=== PATIENT | female | born 1990 ===

== ENCOUNTER 2020-12-10 06:32 | Inpatient (IN) | payer OTHER ==
--- NOTE | 2020-12-10 11:12 | History and Physical Report ---
History of Present Illness Date of examination: 12/10/20 Date of admission: 12/10/2020 Chief complaint: I started having contractions and vaginal bleeding this morning History of present illness: Late entry to care at 22 2/7 weeks at [facility]. course complicated by Anemia (PO FESO4), and non-compliance with visits. 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 History: abnormal PAP smear Social history: no significant social history, - Obstetrical History Expected Date of Delivery: 12/08/20 Actual Gestation: 40 Week(s) 2 Day(s) : 4 Para: 3 Number of Living Children: 3 #1 Infant Gender: Female year: 2,010 Birthweight: 3.175 kg Method of Delivery: Vaginal Gestational age at delivery: 40 #2 Infant Gender: Female year: 2,018 Birthweight: 2.722 kg Method of Delivery: Vaginal Gestational age at delivery: 40 #3 Infant Gender: Male year: 2,020 Birthweight: 3.345 kg Method of Delivery: Vaginal Gestational age at delivery: 40 Medications and Allergies Allergies Allergy/AdvReac Type Severity Reaction Status Date / Time No Known Allergies Allergy Unverified 12/10/20 07:36 Home Medications Medication Instructions Recorded Confirmed Last Taken Type No Known Home Medications [No 12/10/20 12/10/20 Unknown History Reported Home Medications] Review of Systems All systems: negative - Vital Signs Vital signs: Vital Signs Pulse BP 67 111/62 12/10/20 06:55 12/10/20 06:55 Temp Pulse Resp BP Pulse Ox 98.5 F 66 18 95/62 98 12/10/20 07:10 12/10/20 11:05 12/10/20 07:10 12/10/20 09:52 12/10/20 11:05 - Physical Exam Breasts: Positive: normal Cardiovascular: Regular rate Lungs: Positive: Clear to auscultation, Normal air movement Abdomen: Positive: normal appearance, soft, normal bowel sounds Genitourinary (Female): Positive: normal external genitalia, normal perenium Vagina: Positive: normal moisture Uterus: Positive: enlarged, normal contour Anus/Rectum: Positive: normal perianal skin Extremities: Positive: normal - Obstetrical FHR: category 1 Uterine Contraction Monitor Mode: External Cervical Dilatation: 3 Cervical Effacement Percentage: 70 station: -3 Uterine Contraction Pattern: Irregular Uterine Tone Measurement Phase: Resting Uterine Contraction Intensity: Mild Results All other labs normal. Assessment and Plan A: IUP @ 40 2/7 Weeks Category I Tracing Early Labor GBS Positive P: Admit to L&D Per Routine Orders Pitocin Augmentation GBS Prophylaxis
[2020-12-10] MEDS ORDERED: LACTATED RINGERS 1,000 ML IV SCH (11:15)
[2020-12-10] MEDS ORDERED: TERBUTALINE 1 MG/1 ML INJ SUB-Q PRN (11:30)
[2020-12-10] MEDS ORDERED: LIDOCAINE (2%) 20 MG/1 ML VIAL 20 ML MDV INFILTRATI SCH (11:30)
[2020-12-10] MEDS ORDERED: ePHEDrine SULFATE 50 MG/1 ML INJ IV PRN (11:30)
[2020-12-10] MEDS ORDERED: AMPICILLIN/NS 2 GM/100 ML 2 GM/100 ML BAG IV SCH (11:30)
[2020-12-10] MEDS ORDERED: NALOXONE 0.4 MG/1 ML INJ IV PRN (11:30)
[2020-12-10] MEDS ORDERED: BUTORPHANOL 2 MG/1 ML INJ IV PRN (11:30)
[2020-12-10] MEDS ORDERED: MINERAL OIL 30 ML ORAL LIQD PO PRN (12:00)
[2020-12-10] MEDS ORDERED: OXYTOCIN DRIP 30 UNITS/500 ML BAG IV SCH ×2 (12:00)
--- NOTE | 2020-12-10 12:09 | Progress Note ---
Assessment and Plan continue induction. Subjective Date of service: 12/10/20 Principal diagnosis: induction for indications Objective - Constitutional Vitals: Vital Signs - 12hr 12/10/20 12/10/20 12/10/20 06:55 07:09 07:10 Temperature 98.5 F Pulse Rate 67 62 Respiratory 18 Rate Blood Pressure 111/62 O2 Sat by Pulse 99 Oximetry 12/10/20 12/10/20 12/10/20 07:14 07:19 07:24 Temperature Pulse Rate 76 68 68 Respiratory Rate Blood Pressure O2 Sat by Pulse 99 99 99 Oximetry 12/10/20 12/10/20 12/10/20 07:29 07:34 07:39 Temperature Pulse Rate 64 79 60 Respiratory Rate Blood Pressure O2 Sat by Pulse 98 98 98 Oximetry 12/10/20 12/10/20 12/10/20 07:44 07:49 07:54 Temperature Pulse Rate 93 H 72 83 Respiratory Rate Blood Pressure O2 Sat by Pulse 98 99 99 Oximetry 12/10/20 12/10/20 12/10/20 07:59 08:04 08:09 Temperature Pulse Rate 89 78 66 Respiratory Rate Blood Pressure O2 Sat by Pulse 98 98 99 Oximetry 12/10/20 12/10/20 12/10/20 08:14 08:19 08:24 Temperature Pulse Rate 79 68 65 Respiratory Rate Blood Pressure O2 Sat by Pulse 99 97 100 Oximetry 12/10/20 12/10/20 12/10/20 08:29 09:50 09:52 Temperature Pulse Rate 71 73 80 Respiratory Rate Blood Pressure 95/62 O2 Sat by Pulse 99 100 Oximetry 12/10/20 12/10/20 12/10/20 09:55 10:00 10:05 Temperature Pulse Rate 74 76 68 Respiratory Rate Blood Pressure O2 Sat by Pulse 99 99 100 Oximetry 12/10/20 12/10/20 12/10/20 10:10 10:15 10:20 Temperature Pulse Rate 80 79 71 Respiratory Rate Blood Pressure O2 Sat by Pulse 100 100 99 Oximetry 12/10/20 12/10/20 12/10/20 10:25 10:30 10:35 Temperature Pulse Rate 78 82 78 Respiratory Rate Blood Pressure O2 Sat by Pulse 100 99 98 Oximetry 12/10/20 12/10/20 12/10/20 10:40 10:45 10:50 Temperature Pulse Rate 84 79 72 Respiratory Rate Blood Pressure O2 Sat by Pulse 96 99 100 Oximetry 12/10/20 12/10/20 12/10/20 10:55 11:00 11:05 Temperature 98.1 F Pulse Rate 59 L 63 66 Respiratory 18 Rate Blood Pressure O2 Sat by Pulse 99 99 98 Oximetry 12/10/20 12/10/20 12/10/20 11:10 11:42 11:43 Temperature Pulse Rate 69 64 68 Respiratory Rate Blood Pressure 107/65 O2 Sat by Pulse 100 98 Oximetry 12/10/20 12/10/20 12/10/20 11:48 11:53 11:56 Temperature Pulse Rate 69 61 83 Respiratory Rate Blood Pressure O2 Sat by Pulse 97 96 88 Oximetry 12/10/20 12/10/20 11:58 12:03 Temperature Pulse Rate 68 72 Respiratory Rate Blood Pressure O2 Sat by Pulse 97 96 Oximetry General appearance: Present: no acute distress, well-nourished - EENT Eyes: PERRL, EOM intact ENT: hearing intact, clear oral mucosa Ears: bilateral: normal - Neck Neck: supple, normal ROM - Respiratory Respiratory effort: normal Respiratory: bilateral: CTA - Breasts Breasts: normal - Cardiovascular Rhythm: regular Heart Sounds: Present: S1 & S2. Absent: gallop, rub Extremities: pulses intact, No edema, normal color, Full ROM - Gastrointestinal General gastrointestinal: Present: soft, non-tender, non-distended, normal bowel sounds - Genitourinary Female genitourinary: normal - Integumentary Integumentary: clear, warm, dry - Musculoskeletal Musculoskeletal: 1, strength equal bilaterally - Neurologic Neurologic: moves all extremities Medications & Allergies - Medications Allergies/Adverse Reactions: Allergies No Known Allergies Allergy (Unverified 12/10/20 07:36) Home Medications: Home Medications Medication Instructions Recorded Confirmed Last Taken Type No Known Home Medications [No 12/10/20 12/10/20 Unknown History Reported Home Medications] Active Medications: Generic Name Dose Route Start Last Admin Trade Name Freq PRN Reason Stop Dose Admin Butorphanol Tartrate 2 mg 12/10/20 11:30 Butorphanol 2 Mg/1 Ml Inj IV Q2H PRN Pain , Severe (7-10) Ephedrine Sulfate 10 mg 12/10/20 11:30 Ephedrine Sulfate 50 Mg/1 Ml Inj IV Q2M PRN Hypotension Oxytocin/Sodium Chloride 30 units in 500 mls @ 4 mls/hr 12/10/20 12:00 Pitocin/Ns 30 Unit/500ml IV TITR [facility] Protocol Lactated Ringer's 1,000 mls @ 125 mls/hr 12/10/20 11:15 Lactated Ringers IV DIRECT RONY Oxytocin/Sodium Chloride 30 units in 500 mls @ 40 mls/hr 12/10/20 12:00 Pitocin/Ns 30 Unit/500ml IV TITR [facility] Protocol Ampicillin Sodium 2 gm in 100 mls @ 100 mls/hr 12/10/20 11:30 Ampicillin/Ns 2 Gm/100 Ml IV 12/10/20 16:00 ONCE [facility] Protocol Ampicillin Sodium 1 gm in 50 mls @ 100 mls/hr 12/10/20 16:00 Ampicillin/Ns 1 Gm/50 Ml IV Q4H [facility] Protocol Lidocaine 20 ml 12/10/20 11:30 Lidocaine (2%) 20 Mg/1 Ml Vial 20 Ml Mdv INFILTRATI 12/11/20 11:29 ONCE [facility] Mineral Oil 30 ml 12/10/20 12:00 Mineral Oil 30 Ml Oral Liqd PO QHS PRN Constipation Naloxone HCl 0.1 mg 12/10/20 11:30 Naloxone 0.4 Mg/1 Ml Inj IV Q2MIN PRN Res Rate </= 8 or 02 SAT < 92% Terbutaline Sulfate 0.25 mg 12/10/20 11:30 Terbutaline 1 Mg/1 Ml Inj SUB-Q ONCE PRN Hyperstimulation/Hypertonicity
[2020-12-10 12:56] LABS: Hematocrit 32.5 % (30.3-42.9); Hemoglobin 11.2 gm/dl (10.1-14.3); Mean Corpuscular HGB Conc 34 % (30-34); Mean Corpuscular Volume 92 fl (79-97); Platelet Count 170 K/mm3 (140-440); Red Blood Count 3.53 M/mm3 (3.65-5.03); Red Cell Distribution Width 15.9 % (13.2-15.2)
--- NOTE | 2020-12-10 15:30 | Procedure Note ---
OB Delivery Note - Delivery Date of Delivery: 12/10/20 (1440) Surgeon: VINNY CAMILO Estimated blood loss: 100cc - Vaginal Delivery presentation: vertex Delivery position: OA Intrapartum events: none Delivery induction: none Delivery augmentation: rupture of membranes (SROM of a large amount of clear fluid @1430), pitocin Delivery monitor: external FHT, external uterine Route of delivery: Delivery placenta: spontaneous Delivery cord: nuchal cord Episiotomy: none Delivery laceration: 1st degree Delivery repair: vicryl Anesthesia: local Delivery comments: of a live 6'4 female over a 1st degree vaginal laceration without pain control with Apgars of 8 and 9 at 1440 on 12/10/2020. Tight nuchal cord x 1 manually reduced on the perineum prior to delivery of the anterior shoulder. Infant directly to maternal abd/chest, skin to skin contact. Spontaneous delivery of placenta complete and intact with Arias side presenting at 1444. Fundus is firm and midline located 4 below the U. Lochia is scant. Bladder emptied with in and out catheter; estimated 200ccs voided. Delayed cord clamping and cutting; Cord cut by the Father of the Baby. Vaginal laceration repaired with 2-0 Vicryl on a SH under local 2% Lidocaine. GBS prophylaxis x 1. Placenta to be discarded. - A at 1 minute: 8 at 5 minutes: 9 Infant Gender: Female (6'4)
[2020-12-10] MEDS ORDERED: AMPICILLIN/NS 1 GM/50 ML 1 GM/50 ML BAG IV SCH (16:00)
[2020-12-10] MEDS ORDERED: PROMETHAZINE 25 MG TAB PO PRN (16:00)
[2020-12-10] MEDS ORDERED: PROMETHAZINE 25 MG RECT SUPP PR PRN (16:00)
[2020-12-10] MEDS ORDERED: WITCH HAZEL/ GLYCERIN PAD TP PRN (16:00)
[2020-12-10] MEDS ORDERED: diphenhydrAMINE 25 MG CAP PO PRN (16:00)
[2020-12-10] MEDS ORDERED: LANOLIN/ZINC/DIMETHICONE (LANSINOH) 7 GM TP PRN (16:00)
[2020-12-10] MEDS ORDERED: ONDANSETRON 4 MG/2 ML INJ IV PRN (16:00)
[2020-12-10] MEDS: HYDROcodone/ACETAMINOPHEN 5-325 MG TAB PO PRN (21:55)
[2020-12-11] MEDS: IBUPROFEN 600 MG TAB PO SCH ×3 (06:35→18:00)
[2020-12-11 06:36] LABS: Hematocrit 34.4 % (30.3-42.9); Hemoglobin 11.4 gm/dl (10.1-14.3)
[2020-12-11] MEDS: PRENATAL VIT27-FE FUMARATE-FOLIC ACID VIT TAB PO SCH (10:49)
[2020-12-11] MEDS: HYDROcodone/ACETAMINOPHEN 5-325 MG TAB PO PRN (20:29)
--- NOTE | 2020-12-11 20:48 | Progress Note ---
Subjective - Subjective Date of service: 12/11/20 Principal diagnosis: s/p Patient reports: appetite normal, voiding normally, pain well controlled, ambulating normally [place]: doing well, bottle feeding Objective - Vital Signs Latest vital signs: Vital Signs Temp Pulse Resp BP BP Pulse Ox 12/11/20 16:34 98.2 F 60 18 98/54 98 12/11/20 08:04 98.1 F 62 18 105/69 98 12/11/20 04:00 98.6 F 81 16 116/81 12/11/20 00:00 98.7 F 80 16 120/79 12/10/20 21:42 98.2 F 60 18 102/54 95 Intake and Output 12/11/20 12/11/20 12/11/20 06:59 14:59 22:59 Intake Total 240 960 Balance 240 960 Intake: Oral 240 240 Intake, Free Water 720 Other: Total, Intake Amount 240 240 # Voids Void 1 1 2 - Exam Breasts: Present: normal Abdomen: Present: normal appearance, soft, normal bowel sounds Vulva: both: normal Uterus: Present: normal, firm, fundal height below umbilicus Extremities: Present: normal Incision: Present: normal, intact, other (1st degree lac)
--- NOTE | 2020-12-11 22:55 | Discharge Summary ---
Providers - Providers Date of Admission: 12/10/20 11:37 Date of discharge: 12/11/20 Attending physician: RAJI NEWTON JR, MD Primary care physician: RAJI NEWTON JR, MD Hospitalization Reason for admission: active labor Delivery: Episiotomy: none Laceration: 1st degree Incision: normal, intact Other procedures: none complications: none Discharge diagnosis: IUP at term delivered [place] baby: female Hospital course: Pt arrived in active labor and had a w/o pp complications. See H&P, delivery summary, and pp notes. Condition at discharge: Stable Disposition: DC-01 TO HOME OR SELFCARE Plan - Discharge Medications Prescriptions: Ibuprofen [Motrin 600 MG tab] 600 mg PO Q6H #30 tablet - Provider Discharge Summary Activity: routine, no sex for 6 weeks, no heavy lifting 4 weeks, no strenuous exercise Diet: routine Instructions: routine Additional instructions: [] Smoking cessation referral if applicable(refer to patient education folder for contact #) [] Refer to [facility] Book[facility] Call your doctor immediately for: * Fever > 100.5 * Heavy vaginal bleeding ( >1 pad per hour) * Severe persistent headache * Shortness of breath * Reddened, hot, painful area to leg or breast * Drainage or odor from incision. * Keep incision clean and dry at all times and follow doctor's instructions regarding bathing/showering - Follow up plan Follow up: RAJI NEWTON JR, MD [Primary Care Provider] - 6 Weeks
[2020-12-12] MEDS: HYDROcodone/ACETAMINOPHEN 5-325 MG TAB PO PRN (07:55)
[2020-12-12] MEDS: PRENATAL VIT27-FE FUMARATE-FOLIC ACID VIT TAB PO SCH (10:51)
[2020-12-12] MEDS: IBUPROFEN 600 MG TAB PO SCH ×2 (12:40→13:36)
[2020-12-12 13:41] VITALS: BP 102/70
== END 2020-12-12 15:30 | disposition home or self-care (01) | DRG 807 ==
LOC: TRG 06:32 → APU 06:41 → LD 11:26 → TRG 11:35 → LD 11:37 → OB 16:18
PROVIDERS: ADMIT Obstetrics & Gynecology; ATTEND Obstetrics & Gynecology
PROC: 10E0XZZ Delivery of Products of Conception, External Approach (ICD-10-PCS; principal; 2020-12-10)
PROC: 10907ZC Drainage of Amniotic Fluid, Therapeutic from Products of Conception, Via Natural or Artificial Opening (ICD-10-PCS; 2020-12-10)
PROC: 0HQ9XZZ Repair Perineum Skin, External Approach (ICD-10-PCS; 2020-12-10)
DX: O99.824 Streptococcus B carrier state complicating childbirth (principal); Z37.0 Single live birth; Z3A.40 40 weeks gestation of pregnancy; O99.02 Anemia complicating childbirth; O70.0 First degree perineal laceration during delivery; Z91.19 Patient's noncompliance with other medical treatment and regimen; Z20.822 Contact with and (suspected) exposure to COVID-19
CPT/HCPCS: 36415; 59025; 85014; 85018; 85027; 86850; 86900; 86901; G0378; J0290; J0595; J2590; J7120; U0003

== ENCOUNTER 2021-07-13 12:04 | Emergency (ER) | payer MEDICAID ==
[2021-07-13 12:12] VITALS: BP 108/60
[2021-07-13] MEDS ORDERED: ACETAMINOPHEN 325 MG TAB PO ONE (12:30)
[2021-07-13 12:41] LABS: Basophils % (Auto) 0.9 % (0.0-1.8); Eosinophils % (Auto) 0.5 % (0.0-4.3); Hematocrit 38.2 % (30.3-42.9); Hemoglobin 12.7 gm/dl (10.1-14.3); Lymphocytes # (Auto) 1.5 K/mm3 (1.2-5.4); Lymphocytes % (Auto) 28.3 % (13.4-35.0); Mean Corpuscular HGB Conc 33 % (30-34); Mean Corpuscular Volume 90 fl (79-97); Monocytes # (Auto) 0.4 K/mm3 (0.0-0.8); Platelet Count 242 K/mm3 (140-440); Red Blood Count 4.24 M/mm3 (3.65-5.03); Red Cell Distribution Width 14.6 % (13.2-15.2)
[2021-07-13 13:06] LABS: Alanine Aminotransferase 12 units/L (7-56); Albumin 4.6 g/dL (3.9-5); Blood Urea Nitrogen 8 mg/dL (7-17); Calcium 9.1 mg/dL (8.4-10.2); Hemolysis Index 9
[2021-07-13 13:07] LABS: BUN/Creatinine Ratio 20
--- NOTE | 2021-07-13 13:25 | Emergency Department Report ---
ED HPI - General Chief complaint: Vaginal Bleeding Stated complaint: VAGINAL BLEEDING Time Seen by Provider: 07/13/21 12:15 Source: patient Mode of arrival: Ambulatory Limitations: No Limitations - History of Present Illness Initial comments: Patient is a 31-year-old female presents emergency room complaints of vaginal spotting that began yesterday. She states that whenever she urinates and goes to wipe she notices a small amount of blood on the tissue. She denies any heavy bleeding or passing clots. She states that she has been having lower abdominal cramping. She states her last menstrual cycle was 05/17/2021. She states that she took rieh-cvs-[id number] test which was positive. She has not seen ENGINEER CHIEF. She denies any fever, nausea, vomiting, diarrhea, dysuria, abnormal vaginal discharge. No past medical history. No allergies to medications. /P:4/A: 0 - Related Data Previous Rx's Medication Instructions Recorded Last Taken Type Ibuprofen [Motrin 600 MG tab] 600 mg PO Q6H #30 tablet 12/11/20 Unknown Rx Vit-Fe Fumar-FA [ 1 each PO QDAY tablet 12/11/20 Unknown Rx Vitamin] Allergies Allergy/AdvReac Type Severity Reaction Status Date / Time No Known Allergies Allergy Verified 07/13/21 12:12 ED Review of Systems ROS: Stated complaint: VAGINAL BLEEDING Other details as noted in HPI Comment: All other systems reviewed and negative ED Past Medical Hx - Past Medical History Hx Hypertension: No Hx Congestive Heart Failure: No Hx Diabetes: No Hx Deep Vein Thrombosis: No Hx Renal Disease: No Hx Sickle Cell Disease: No Hx Seizures: No Hx Asthma: No Hx COPD: No Hx HIV: No - Social History Smoking Status: Never Smoker - Medications Home Medications: Home Medications Medication Instructions Recorded Confirmed Last Taken Type Ibuprofen [Motrin 600 MG tab] 600 mg PO Q6H #30 tablet 12/11/20 Unknown Rx Vit-Fe Fumar-FA [ 1 each PO QDAY tablet 12/11/20 Unknown Rx Vitamin] ED Physical Exam - General Limitations: No Limitations General appearance: alert, in no apparent distress - Head Head exam: Present: atraumatic, normocephalic - Eye Eye exam: Present: normal appearance - ENT ENT exam: Present: mucous membranes moist - Respiratory Respiratory exam: Present: normal lung sounds bilaterally. Absent: respiratory distress, wheezes, rales, rhonchi, stridor, chest wall tenderness, accessory muscle use, decreased breath sounds, prolonged expiratory - Cardiovascular Cardiovascular Exam: Present: regular rate, normal rhythm, normal heart sounds. Absent: systolic murmur, diastolic murmur, rubs, gallop - GI/Abdominal GI/Abdominal exam: Present: soft, normal bowel sounds. Absent: distended, t enderness, guarding, rebound, rigid - Neurological Exam Neurological exam: Present: alert, oriented X3 - Psychiatric Psychiatric exam: Present: normal affect, normal mood - Skin Skin exam: Present: warm, dry, intact ED Course Vital Signs 07/13/21 12:11 Temperature 98.2 F Pulse Rate 63 Respiratory 18 Rate Blood Pressure 108/60 O2 Sat by Pulse 98 Oximetry ED Medical Decision Making - Lab Data Result diagrams: 07/13/21 12:23 07/13/21 12:23 Lab Results 07/13/21 07/13/21 07/13/21 Range/Units 12:23 12:23 12:23 WBC 5.4 (4.5-11.0) K/mm3 RBC 4.24 (3.65-5.03) M/mm3 Hgb 12.7 (10.1-14.3) gm/dl Hct 38.2 (30.3-42.9) % MCV 90 (79-97) fl MCH 30 (28-32) pg MCHC 33 (30-34) % RDW 14.6 (13.2-15.2) % Plt Count 242 (140-440) K/mm3 Lymph % (Auto) 28.3 (13.4-35.0) % Cottle % (Auto) 8.0 H (0.0-7.3) % Eos % (Auto) 0.5 (0.0-4.3) % Baso % (Auto) 0.9 (0.0-1.8) % Lymph # (Auto) 1.5 (1.2-5.4) K/mm3 Cottle # (Auto) 0.4 (0.0-0.8) K/mm3 Eos # (Auto) 0.0 (0.0-0.4) K/mm3 Baso # (Auto) 0.0 (0.0-0.1) K/mm3 Seg Neutrophils % 62.3 (40.0-70.0) % Seg Neutrophils # 3.4 (1.8-7.7) K/mm3 Sodium 138 (137-145) mmol/L Potassium 3.9 (3.6-5.0) mmol/L Chloride 103.1 (98-107) mmol/L Carbon Dioxide 21 L (22-30) mmol/L Anion Gap 18 mmol/L BUN 8 (7-17) mg/dL Creatinine 0.4 L (0.6-1.2) mg/dL Estimated GFR > 60 ml/min BUN/Creatinine Ratio 20 % Glucose 103 H (65-100) mg/dL Calcium 9.1 (8.4-10.2) mg/dL Total Bilirubin 0.20 (0.1-1.2) mg/dL AST 15 (5-40) units/L ALT 12 (7-56) units/L Alkaline Phosphatase 68 (35-129) units/L Total Protein 7.4 (6.3-8.2) g/dL Albumin 4.6 (3.9-5) g/dL Albumin/Globulin Ratio 1.6 % HCG, Quant 3966 H (0-4) mIU/mL Urine Color (Yellow) Urine Turbidity (Clear) Urine pH (5.0-7.0) Ur Specific [place] (1.003-1.030) Urine Protein (Negative) mg/dL Urine Glucose (UA) (Negative) mg/dL Urine Ketones (Negative) mg/dL Urine Blood (Negative) Urine Nitrite (Negative) Urine Bilirubin (Negative) Urine Urobilinogen (<2.0) mg/dL Ur Leukocyte Esterase (Negative) Urine WBC (Auto) (0.0-6.0) /HPF Urine RBC (Auto) (0.0-6.0) /HPF Blood Type 07/13/21 07/13/21 Range/Units 12:23 13:47 WBC (4.5-11.0) K/mm3 RBC (3.65-5.03) M/mm3 Hgb (10.1-14.3) gm/dl Hct (30.3-42.9) % MCV (79-97) fl MCH (28-32) pg MCHC (30-34) % RDW (13.2-15.2) % Plt Count (140-440) K/mm3 Lymph % (Auto) (13.4-35.0) % Cottle % (Auto) (0.0-7.3) % Eos % (Auto) (0.0-4.3) % Baso % (Auto) (0.0-1.8) % Lymph # (Auto) (1.2-5.4) K/mm3 Cott[place] # (Auto) (0.0-0.8) K/mm3 Eos # (Auto) (0.0-0.4) K/mm3 Baso # (Auto) (0.0-0.1) K/mm3 Seg Neutrophils % (40.0-70.0) % Seg Neutrophils # (1.8-7.7) K/mm3 Sodium (137-145) mmol/L Potassium (3.6-5.0) mmol/L Chloride (98-107) mmol/L Carbon Dioxide (22-30) mmol/L Anion Gap mmol/L BUN (7-17) mg/dL Creatinine (0.6-1.2) mg/dL Estimated GFR ml/min BUN/Creatinine Ratio % Glucose (65-100) mg/dL Calcium (8.4-10.2) mg/dL Total Bilirubin (0.1-1.2) mg/dL AST (5-40) units/L ALT (7-56) units/L Alkaline Phosphatase (35-129) units/L Total Protein (6.3-8.2) g/dL Albumin (3.9-5) g/dL Albumin/Globulin Ratio % HCG, Quant (0-4) mIU/mL Urine Color Red (Yellow) Urine Turbidity Cloudy (Clear) Urine pH 7.0 (5.0-7.0) Ur Specific [place] 1.002 L (1.003-1.030) Urine Protein 100 mg/dl (Negative) mg/dL Urine Glucose (UA) Neg (Negative) mg/dL Urine Ketones Neg (Negative) mg/dL Urine Blood Lg (Negative) Urine Nitrite Neg (Negative) Urine Bilirubin Neg (Negative) Urine Urobilinogen < 2.0 (<2.0) mg/dL Ur Leukocyte Esterase Sm (Negative) Urine WBC (Auto) < 1.0 (0.0-6.0) /HPF Urine RBC (Auto) < 1.0 (0.0-6.0) /HPF Blood Type A POSITIVE - Radiology Data Radiology results: report reviewed Ordering Physician: MARIANO CORTEZ Date of Service: 07/13/21 Procedure(s): US OB transvaginal Accession Number(s): [id number] cc: MARIANO CORTEZ FIRSTTRIMESTER OBSTETRIC ULTRASOUND ULTRASOUND OB TRANSVAGINAL HISTORY: Vaginal spotting during COMPARISON: None. TECHNIQUE: Routine transabdominal and transvaginal OB ultrasound performed. FINDINGS: Uterus: Mildly enlarged measuring 10.4 x 6.3 x 7.6 cm. Gestational Sac: Well-defined oval shape and intrauterine in location. Yolk Sac: Normal in appearance. Fetus/Embryo: Green-rump length of 0.53 cm, corresponding to an estimated gestational age of 6 weeks 2 days. Embryonic/ anatomy is too small for evaluation. Embryonic/ cardiac activity: Not clearly detected Placenta: Too small for evaluation. Amniotic fluid volume: Subjectively appropriate for gestational age. Ovaries: The right ovary is normal in size and appearance with normal blood flow, measuring 2.7 x 1.9 x 2.1 cm. The left ovary is normal in size and appearance with normal blood flow, measuring 2.5 x 1.8 x 3.2 cm. Additional findings: None. IMPRESSION A small gestational sac containing a pole and yolk sac is identified. Green-rump length correlates with a 6 week 2 day . No convincing heart activity could be demonstrated at this time. This could represent a very early normal . Blighted ovum is not excluded. Close interval follow-up is recommended. Signer Name: Jonatan Davenport Jr, MD Signed: 07/13/2021 2:40 PM Workstation Name: [id number] Transcribed By: TTR Dictated By: JONATAN DAVENPORT JR, MD Electronically Authenticated By: JONATAN DAVENPORT JR, MD Signed Date/Time: 07/13/21 1440 DD/ 1437 TD/TT: - Medical Decision Making Patient is a 31-year-old female presents emergency room complaints of vaginal spotting that began yesterday. She states that whenever she urinates and goes to wipe she notices a small amount of blood on the tissue. She denies any heavy bleeding or passing clots. She states that she has been having lower abdominal cramping. She states her last menstrual cycle was 05/17/2021. She states that she took [id number]-jyp-efoaamc test which was positive. She has not seen ENGINEER CHIEF. She denies any fever, nausea, vomiting, diarrhea, dysuria, abnormal vaginal discharge. No past medical history. No allergies to medications. /P:4/A: 0. Vitals are normal. No abdominal tenderness on exam. hCG quant is 3966. Patient is Rh+. UA without evidence of UTI. OB ultrasound: A small gestational sac containing a pole and yolk sac is identified. Green-rump length correlates with a 6 week 2 day . No convincing heart activity could be demonstrated at this time. This could represent a very early normal . Blighted ovum is not excluded. Close interval follow-up is recommended. Discussed all findings with patient. Discussed threatened miscarriage. Discussed the importance of having repeat hCG quant and close OB/ COLLECTIONS CURATOR follow-up. Advised patient May take Tylenol as needed for any cramping. Increase your water intake. Please practice pelvic rest. Follow-up with ENGINEER CHIEF. You need to have a repeat hCG quant in 2-3 days, if you are unable to follow-up with ENGINEER CHIEF may report to the emergency room. Return to emergency room for any new or worsening symptoms. Critical care attestation.: If time is entered above; I have spent that time in minutes in the direct care of this critically ill patient, excluding procedure time. ED Disposition Clinical Impression: Threatened miscarriage Disposition: 01 HOME / SELF CARE / HOMELESS Is pt being admited?: No Does the pt Need Aspirin: No Condition: Stable Instructions: Threatened Miscarriage Additional Instructions: May take Tylenol as needed for any cramping. Increase your water intake. Please practice pelvic rest. Follow-up with ENGINEER CHIEF. You need to have a repeat hCG quant in 2-3 days, if you are unable to follow-up with ENGINEER CHIEF may report to the emergency room. Return to emergency room for any new or worsening symptoms. Referrals: OMAR BEEBE MD [Staff Physician] - 2-3 Days Time of Disposition: 14:47 Print Language: SOUTH SUDANESE
[2021-07-13 14:03] LABS: Bilirubin,Urine NEG (Negative); Blood,Urine LG (Negative); Color,Urine Red (Yellow); Urobilinogen,Urine < 2.0 mg/dL (<2.0); WBC,Urine < 1.0 /HPF (0.0-6.0)
[2021-07-13 14:13] LABS: RBC,Urine < 1.0 /HPF (0.0-6.0)
--- NOTE | 2021-07-13 14:45 | Ultrasound Report ---
FIRSTTRIMESTER OBSTETRIC ULTRASOUND ULTRASOUND OB TRANSVAGINAL HISTORY: Vaginal spotting during COMPARISON: None. TECHNIQUE: Routine transabdominal and transvaginal OB ultrasound performed. FINDINGS: Uterus: Mildly enlarged measuring 10.4 x 6.3 x 7.6 cm. Gestational Sac: Well-defined oval shape and intrauterine in location. Yolk Sac: Normal in appearance. Fetus/Embryo: [place]-rump length of 0.53 cm, corresponding to an estimated gestational age of 6 weeks 2 days. Embryonic/ anatomy is too small for evaluation. Embryonic/ cardiac activity: Not clearly detected Placenta: Too small for evaluation. Amniotic fluid volume: Subjectively appropriate for gestational age. Ovaries: The right ovary is normal in size and appearance with normal blood flow, measuring 2.7 x 1. 9 x 2.1 cm. The left ovary is normal in size and appearance with normal blood flow, measuring 2.5 x 1.8 x 3.2 cm. Additional findings: None. IMPRESSION A small gestational sac containing a pole and yolk sac is identified. [place]-rump length correla shayy with a 6 week 2 day . No convincing heart activity could be demonstrated at this t lolita. This could represent a very early normal . Blighted ovum is not excluded. Close interva l follow-up is recommended. Signer Name: Jonatan Davenport Jr, MD Signed: 07/13/2021 2:40 PM Workstation Name: [id number]
--- NOTE | 2021-07-13 14:45 | Ultrasound Report ---
FIRSTTRIMESTER OBSTETRIC ULTRASOUND ULTRASOUND OB TRANSVAGINAL HISTORY: Vaginal spotting during COMPARISON: None. TECHNIQUE: Routine transabdominal and transvaginal OB ultrasound performed. FINDINGS: Uterus: Mildly enlarged measuring 10.4 x 6.3 x 7.6 cm. Gestational Sac: Well-defined oval shape and intrauterine in location. Yolk Sac: Normal in appearance. Fetus/Embryo: [place]-rump length of 0.53 cm, corresponding to an estimated gestational age of 6 weeks 2 days. Embryonic/ anatomy is too small for evaluation. Embryonic/ cardiac activity: Not clearly detected Placenta: Too small for evaluation. Amniotic fluid volume: Subjectively appropriate for gestational age. Ovaries: The right ovary is normal in size and appearance with normal blood flow, measuring 2.7 x 1. 9 x 2.1 cm. The left ovary is normal in size and appearance with normal blood flow, measuring 2.5 x 1.8 x 3.2 cm. Additional findings: None. IMPRESSION A small gestational sac containing a pole and yolk sac is identified. [place]-rump length correla shayy with a 6 week 2 day . No convincing heart activity could be demonstrated at this t lolita. This could represent a very early normal . Blighted ovum is not excluded. Close interva l follow-up is recommended. Signer Name: Jonatan Davenport Jr, MD Signed: 07/13/2021 2:40 PM Workstation Name: [id number]
== END 2021-07-13 15:06 | disposition home or self-care (01) ==
LOC: ED 12:04
DX: O20.0 Threatened abortion (principal); Z3A.01 Less than 8 weeks gestation of pregnancy
CPT/HCPCS: 36415; 76801; 76817; 80053; 81001; 84702; 85025; 86900; 86901

== ENCOUNTER 2021-07-14 22:32 | Emergency (ER) | payer MEDICAID ==
[2021-07-14 22:36] VITALS: BP 109/54
[2021-07-15 01:05] LABS: Basophils % (Auto) 0.7 % (0.0-1.8); Eosinophils # (Auto) 0.1 K/mm3 (0.0-0.4); Hematocrit 37.5 % (30.3-42.9); Hemoglobin 12.5 gm/dl (10.1-14.3); Lymphocytes # (Auto) 2.1 K/mm3 (1.2-5.4); Lymphocytes % (Auto) 32.8 % (13.4-35.0); Mean Corpuscular HGB Conc 33 % (30-34); Mean Corpuscular Volume 92 fl (79-97); Monocytes # (Auto) 0.5 K/mm3 (0.0-0.8); Monocytes % (Auto) 7.3 % (0.0-7.3); Platelet Count 237 K/mm3 (140-440); Red Blood Count 4.09 M/mm3 (3.65-5.03); Red Cell Distribution Width 14.5 % (13.2-15.2)
--- NOTE | 2021-07-15 03:26 | Ultrasound Report ---
ULTRASOUND OBSTETRIC REASON FOR EXAM: vag bleeding pos preg TECHNIQUE: Transabdominal ultrasound was performed to evaluate a first trimester . COMPARISON: 07/13/2021 FINDINGS: Uterus measures 9.6 x 4.6 x 6.3 cm. Intrauterine gestational sac previously seen on prior exam from 09/12/2020 is no longer identified. No significant endometrial fluid. Endometrial stripe is normal in thickness, measuring 6 cm. No abnormal Doppler flow. Right ovary measures 3.2 x 1.1 x 2.5 cm, and the left ovary measures 2.3 x 2.1 x 2.4 cm. Both ovaries demonstrate a normal sonographic appearance. No significant free fluid. IMPRESSION: No intrauterine is identified. Previously described intrauterine gestational sac with yolk sac and pole is no longer seen. Findings are diagnostic of failure. Signer Name: Fred Keyes MD Signed: 07/15/2021 3:22 AM Workstation Name: [id number]
--- NOTE | 2021-07-15 03:34 | Emergency Department Report ---
ED HPI - General Chief complaint: Vaginal Bleeding Stated complaint: 6 WEEKS VAGINAL BLEEDING Time Seen by Provider: 07/15/21 00:41 Source: patient Mode of arrival: Ambulatory Limitations: No Limitations - History of Present Illness Initial comments: Patient is a 31-year-old G2, who was seen on yesterday for threatened miscarriage who returns today for vaginal bleeding. Patient states she passed large clots at home. Patient denies fevers or chills there is no nausea no vomiting. Has used 3 pads. There are no exacerbating or relieving factors. MD Complaint: vaginal bleeding - Related Data Previous Rx's Medication Instructions Recorded Last Taken Type Ibuprofen [Motrin 600 MG tab] 600 mg PO Q6H #30 tablet 12/11/20 Unknown Rx Vit-Fe Fumar-FA [ 1 each PO QDAY tablet 12/11/20 Unknown Rx Vitamin] Allergies Allergy/AdvReac Type Severity Reaction Status Date / Time No Known Allergies Allergy Verified 07/13/21 12:12 ED Review of Systems ROS: Stated complaint: 6 WEEKS VAGINAL BLEEDING Other details as noted in HPI Constitutional: denies: chills, fever Eyes: denies: eye pain, eye discharge, vision change ENT: denies: ear pain, throat pain Respiratory: denies: cough, shortness of breath, wheezing Cardiovascular: denies: chest pain, palpitations Endocrine: no symptoms reported Gastrointestinal: abdominal pain. denies: nausea, vomiting Genitourinary: other (Vaginal bleeding). denies: urgency, dysuria, frequency, hematuria, discharge Musculoskeletal: back pain. denies: joint swelling, arthralgia Skin: denies: rash, lesions Neurological: denies: headache, weakness, paresthesias Psychiatric: denies: anxiety, depression Hematological/Lymphatic: denies: easy bleeding, easy bruising ED Past Medical Hx - Past Medical History Previous Medical History?: No Hx Hypertension: No Hx Congestive Heart Failure: No Hx Diabetes: No Hx Deep Vein Thrombosis: No Hx Renal Disease: No Hx Sickle Cell Disease: No Hx Seizures: No Hx Asthma: No Hx COPD: No Hx HIV: No - Surgical History Past Surgical History?: No - Social History Smoking Status: Never Smoker - Medications Home Medications: Home Medications Medication Instructions Recorded Confirmed Last Taken Type Ibuprofen [Motrin 600 MG tab] 600 mg PO Q6H #30 tablet 12/11/20 Unknown Rx Vit-Fe Fumar-FA [ 1 each PO QDAY tablet 12/11/20 Unknown Rx Vitamin] ED Physical Exam - General Limitations: No Limitations General appearance: alert, in no apparent distress - Head Head exam: Present: atraumatic, normocephalic - Eye Eye exam: Present: normal appearance, EOMI Pupils: Present: normal accommodation - ENT ENT exam: Present: mucous membranes moist - Neck Neck exam: Present: normal inspection, full ROM. Absent: tenderness - Respiratory Respiratory exam: Present: normal lung sounds bilaterally. Absent: respiratory distress, wheezes, stridor - Cardiovascular Cardiovascular Exam: Present: regular rate, normal rhythm, normal heart sounds. Absent: systolic murmur, diastolic murmur, rubs, gallop - GI/Abdominal GI/Abdominal exam: Present: soft, normal bowel sounds. Absent: distended, tend erness, guarding, rebound, rigid, bruit, hernia - Rectal Rectal exam: Present: deferred, other - External exam: Present: other (deferred ) - Extremities Exam Extremities exam: Present: normal inspection, full ROM. Absent: tenderness - Back Exam Back exam: Present: normal inspection, full ROM. Absent: CVA tenderness (R), CVA tenderness (L) - Neurological Exam Neurological exam: Present: alert, oriented X3, normal gait - Psychiatric Psychiatric exam: Present: normal affect, normal mood - Skin Skin exam: Present: warm, dry, intact, normal color. Absent: rash ED Course Vital Signs 07/14/21 22:35 Temperature 98.2 F Pulse Rate 58 L Respiratory 14 Rate Blood Pressure 109/54 O2 Sat by Pulse 97 Oximetry ED Medical Decision Making - Lab Data Result diagrams: 07/15/21 00:51 Labs 07/15/21 07/15/21 07/15/21 00:51 00:51 00:51 WBC 6.4 RBC 4.09 Hgb 12.5 Hct 37.5 MCV 92 MCH 31 MCHC 33 RDW 14.5 Plt Count 237 Lymph % (Auto) 32.8 [place] % (Auto) 7.3 Eos % (Auto) 1.0 Baso % (Auto) 0.7 Lymph # (Auto) 2.1 [place] # (Auto) 0.5 Eos # (Auto) 0.1 Baso # (Auto) 0.0 Seg Neutrophils % 58.2 Seg Neutrophils # 3.7 HCG, Quant 1930 H Blood Type A POSITIVE - Radiology Data Radiology results: report reviewed, image reviewed ULTRASOUND OBSTETRIC REASON FOR EXAM: vag bleeding pos preg TECHNIQUE: Transabdominal ultrasound was performed to evaluate a first trimester . COMPARISON: 07/13/2021 FINDINGS: Uterus measures 9.6 x 4.6 x 6.3 cm. Intrauterine gestational sac previously seen on prior exam from 07/13/2021 is no longer identified. No significant endometrial fluid. Endome trial stripe is normal in thickness, measuring 6 cm. No abnormal Doppler flow. Right ovary measures 3.2 x 1.1 x 2.5 cm, and the left ovary measures 2.3 x 2.1 x 2.4 cm. Both ovaries demonstrate a normal sonographic appearance. No significant free fluid. IMPRESSION: No intrauterine is identified. Previously described intrauterine gestational sac with yolk sac and pole is no longer seen. Findings are diagnostic of failure. Signer Name: Fred Keyes MD Signed: 07/15/2021 3:22 AM Workstation Name: [id number] - Medical Decision Making Ultrasound OB no intrauterine noted, hCG noted as above, patient is a positive blood type, this is a miscarriage, plan DC to home, follow-up with your ABA TUTOR call tomorrow to set up appointment. Return to emergency should symptoms worsen. Patient verbalized agreement and understanding with discharge plan. Patient DC'd home in stable condition at this time. Critical care attestation.: If time is entered above; I have spent that time in minutes in the direct care of this critically ill patient, excluding procedure time. ED Disposition Clinical Impression: Miscarriage Disposition: 01 HOME / SELF CARE / HOMELESS Is pt being admited?: No Does the pt Need Aspirin: No Condition: Stable Instructions: Miscarriage, Npex-se-Cspo, Managing Loss Additional Instructions: Follow-up with your ABA TUTOR in the next 1 to 2 days. Return to emergency department if symptoms worsen. Referrals: RIOS ANNE MD [Staff Physician] - 3-5 Days Forms: Work/School Release Form(ED) Time of Disposition: 03:38 Print Language: BELGIAN
== END 2021-07-15 04:01 | disposition home or self-care (01) ==
LOC: ED 22:32
DX: O03.9 Complete or unspecified spontaneous abortion without complication (principal); Z3A.01 Less than 8 weeks gestation of pregnancy
CPT/HCPCS: 36415; 76801; 84702; 85025; 86900; 86901; 99283

== ENCOUNTER 2022-04-16 11:01 | Outpatient (CLI) | payer MEDICAID ==
[2022-04-16 11:58] VITALS: BP 115/65
--- NOTE | 2022-04-16 13:07 | Ultrasound Report ---
ULTRASOUND BIOPHYSICAL PROFILE ULTRASOUND OB LIMITED INDICATION: bpp, DECREASED MOVEMENT TECHNIQUE: Transabdominal ultrasound imaging. COMPARISON: None FINDINGS: breathing movement = 2 Gross body movement = 2 tone = 2 Qualitative amniotic fluid volume = 2 Total biophysical score = 8/8 Amniotic fluid index is 9.8 cm. Presentation is cephalic. heart rate is 135 beats per minute. IMPRESSION: biophysical profile equals 8/8. Signer Name: Jonatan Davenport Jr, MD Signed: 04/16/2022 1:03 PM Workstation Name: [id number]
== END 2022-04-16 13:08 | disposition home or self-care (01) ==
LOC: TRG 11:01 → APU 11:02 → TRG 13:08
PROVIDERS: ATTEND Obstetrics & Gynecology
DX: O36.8130 Decreased fetal movements, third trimester, not applicable or unspecified (principal); O26.893 Other specified pregnancy related conditions, third trimester; R10.9 Unspecified abdominal pain; Z3A.38 38 weeks gestation of pregnancy
CPT/HCPCS: 59025; 76815; 76819

== ENCOUNTER 2022-04-20 12:45 | Inpatient (IN) | payer MEDICAID ==
--- NOTE | 2022-04-20 16:26 | Ultrasound Report ---
US OB BPP wo non-stress, US OB limited INDICATION: wellbeing. TECHNIQUE: Transabdominal. COMPARISON: None available. FINDINGS: There is a single intrauterine . Heart Rate: 36 beats per minute. Position: cephalic. Amniotic Fluid Volume: normal Amniotic Fluid Index (SARAH) in cm (if calculated): 16.3. Biophysical Profile: breathing movements: 2 movements:2 posture and tone:2 Qualitative amniotic fluid volume: 2 IMPRESSION: 1. Biophysical profile is 8 of 8. No significant sonographic abnormality identified. Signer Name: Aaron Miller MD Signed: 04/20/2022 4:22 PM Workstation Name: [email or web address]
[2022-04-20] MEDS ORDERED: LACTATED RINGERS 1,000 ML ONE (17:41)
[2022-04-20] MEDS ORDERED: BUTORPHANOL 2 MG/1 ML INJ IV PRN (18:42)
[2022-04-20] MEDS ORDERED: MINERAL OIL 30 ML ORAL LIQD PO PRN (18:42)
[2022-04-20] MEDS ORDERED: METHYLERGONOVINE MALEATE 0.2 MG/ML VIAL IM PRN (18:42)
[2022-04-20] MEDS ORDERED: ACETAMINOPHEN 325 MG TAB PO PRN ×2 (18:42→23:12)
[2022-04-20] MEDS ORDERED: LIDOCAINE (2%) 20 MG/1 ML VIAL 20 ML MDV INFILTRATI SCH (18:42)
[2022-04-20] MEDS ORDERED: ePHEDrine SULFATE 50 MG/1 ML INJ IV PRN (18:42)
[2022-04-20] MEDS ORDERED: NalbUPHINE 10 MG/1 ML INJ IV PRN (18:42)
[2022-04-20] MEDS ORDERED: LOPERAMIDE 2 MG CAP PO PRN (18:42)
[2022-04-20] MEDS ORDERED: miSOPROStol 200 MCG TAB PR PRN (18:42)
[2022-04-20] MEDS ORDERED: CARBOPROST TROMETHAMINE 250 MCG/1 ML INJ IM PRN (18:42)
[2022-04-20] MEDS ORDERED: TERBUTALINE 1 MG/1 ML INJ SUB-Q PRN (18:42)
[2022-04-20] MEDS ORDERED: OXYTOCIN 10 UNIT/1 ML INJ IM PRN (18:42)
[2022-04-20] MEDS ORDERED: fentaNYL 100 MCG/2 ML INJ IV PRN (18:42)
[2022-04-20] MEDS ORDERED: OXYTOCIN DRIP 30 UNITS/500 ML BAG IV SCH ×2 (19:00)
[2022-04-20 19:50] LABS: Hematocrit 35.1 % (30.3-42.9); Hemoglobin 11.7 gm/dl (10.1-14.3); Mean Corpuscular HGB Conc 34 % (30-34); Mean Corpuscular Volume 94 fl (79-97); Platelet Count 190 K/mm3 (140-440); Red Blood Count 3.72 M/mm3 (3.65-5.03); Red Cell Distribution Width 16.3 % (13.2-15.2)
[2022-04-20] MEDS ORDERED: LACTATED RINGERS 1,000 ML IV SCH (20:00)
--- NOTE | 2022-04-20 20:43 | History and Physical Report ---
History of Present Illness Date of examination: 04/20/22 Date of admission: 04/20/2022 Chief complaint: Contractions History of present illness: 31-year-old at 39-1/7 weeks gestation presents to OB triage reporting regular and painful uterine contractions. There is no vaginal bleeding. There is no leaking of fluid. There is good movement. In OB triage, cervical exam was 4 cm dilated. As such, this patient is admitted to labor and delivery in early labor with a plan for expectant management. Past History Past Medical History: no pertinent history Past Surgical History: no surgical history EVP MANAGING DIRECTOR History: herpes Family/Genetic History: none Social history: no significant social history - Obstetrical History Expected Date of Delivery: 04/26/22 Actual Gestation: 39 Week(s) 1 Day(s) : 6 Para: 4 Hx # Term Pregnancies: 4 Number of Pregnancies: 0 Spontaneous Abortions: 1 Induced : 0 Number of Living Children: 4 Medications and Allergies Allergies Allergy/AdvReac Type Severity Reaction Status Date / Time No Known Allergies Allergy Verified 04/20/22 19:23 Home Medications Medication Instructions Recorded Confirmed Last Taken Type Vit-Fe Fumar-FA [ 1 each PO QDAY tablet 12/11/20 04/20/22 04/20/22 Rx Vitamin] Active Meds: Active Medications Acetaminophen (Acetaminophen 325 Mg Tab) 650 mg PO Q4H PRN PRN Reason: Pain, Mild (1-3) Butorphanol Tartrate (Butorphanol 2 Mg/1 Ml Inj) 2 mg IV Q2H PRN PRN Reason: Pain , Severe (7-10) Carboprost Tromethamine (Carboprost Tromethamine 250 Mcg/1 Ml Inj) 250 mcg IM ONCE PRN PRN Reason: Uterine Bleeding Ephedrine Sulfate (Ephedrine Sulfate 50 Mg/1 Ml Inj) 10 mg IV Q2M PRN PRN Reason: Hypotension Fentanyl (Fentanyl 100 Mcg/2 Ml Inj) 100 mcg IV Q2H PRN PRN Reason: Pain,Severe (7-10) LABOR PAIN Oxytocin/Sodium Chloride (Pitocin/Ns 30 Unit/500ml) 30 units in 500 mls @ 2 mls/hr IV TITR RONY; Protocol Lactated Ringer's (Lactated Ringers) 1,000 mls @ 125 mls/hr IV DIRECT RONY Oxytocin/Sodium Chloride (Pitocin/Ns 30 Unit/500ml) 30 units in 500 mls @ 40 mls/hr IV TITR RONY; Protocol Lidocaine (Lidocaine (2%) 20 Mg/1 Ml Vial 20 Ml Mdv) 20 ml INFILTRATI ONCE RONY Loperamide HCl (Loperamide 2 Mg Cap) 2 mg PO ONCE PRN PRN Reason: give with Hemabate Methylergonovine Maleate (Methylergonovine Maleate 0.2 Mg/Ml Vial) 0.2 mg IM ONCE PRN PRN Reason: Uterine Bleeding Mineral Oil (Mineral Oil 30 Ml Oral Liqd) 30 ml PO QHS PRN PRN Reason: Constipation Misoprostol (Misoprostol 200 Mcg Tab) 800 mcg MS ONCE PRN PRN Reason: Uterine Bleeding Nalbuphine HCl (Nalbuphine 10 Mg/1 Ml Inj) 10 mg IV Q2H PRN PRN Reason: Pain, Moderate (4-6) Oxytocin (Oxytocin 10 Unit/1 Ml Inj) 10 unit IM ONCE PRN PRN Reason: Uterine Bleeding Terbutaline Sulfate (Terbutaline 1 Mg/1 Ml Inj) 0.25 mg SUB-Q ONCE PRN PRN Reason: Hyperstimulation/Hypertonicity Review of Systems All systems: negative - Vital Signs Vital signs: Vital Signs Pulse Pulse Ox 77 97 04/20/22 13:07 04/20/22 13:07 Temp Pulse Resp BP Pulse Ox 98.5 F 82 20 122/71 97 04/20/22 19:20 04/20/22 20:34 04/20/22 13:38 04/20/22 19:29 04/20/22 20:34 - Physical Exam Breasts: Positive: normal Cardiovascular: Regular rate Lungs: Positive: Normal air movement Abdomen: Positive: normal appearance Genitourinary (Female): Positive: normal external genitalia, normal perenium Vulva: both: normal (No HSV lesions seen) Vagina: Positive: normal moisture, other (No HSV lesions seen) Cervix: Positive: other (No HSV lesions seen or palpated) Uterus: Positive: enlarged Adnexa: both: normal Anus/Rectum: Positive: normal perianal skin Extremities: Positive: normal Deep Tendon Reflex Grade: Normal +2 - Obstetrical FHR: category 1 Uterine Contraction Monitor Mode: External Cervical Dilatation: 4 Cervical Effacement Percentage: 70 station: -2 Uterine Contraction Frequency (min): 5 Uterine Contraction Pattern: Regular Results Result Diagrams: 04/20/22 18:35 Abnormal lab results 04/20/22 Range/Units 18:35 RDW 16.3 H (13.2-15.2) % All other labs normal. Ultrasound: report reviewed, image reviewed Assessment and Plan - Patient Problems (1) 39 weeks gestation of Current Visit: Yes Status: Acute Plan to address problem: care is up-to-date. 1 hour glucose tolerance test was normal. She is GBS negative. (2) Active labor at term Current Visit: Yes Status: Acute Plan to address problem: This patient is in early labor. I suspect she will go into active labor soon. Expectant management for now. (3) Genital herpes affecting in third trimester Current Visit: Yes Status: Acute Plan to address problem: No HSV lesions seen.
[2022-04-20] MEDS ORDERED: WITCH HAZEL/ GLYCERIN PAD TP PRN (23:12)
[2022-04-20] MEDS ORDERED: LANOLIN/ZINC/DIMETHICONE (LANSINOH) 7 GM TP PRN (23:12)
[2022-04-20] MEDS ORDERED: BENZOCAINE/MENTHOL 20/0.5% TOP SPRAY 56 GM TP PRN (23:12)
[2022-04-20] MEDS ORDERED: HYDROcodone/ACETAMINOPHEN 5-325 MG TAB PO PRN (23:12)
[2022-04-20] MEDS ORDERED: MAGNESIUM HYDROXIDE (MOM) ORAL LIQD UDC PO PRN (23:12)
--- NOTE | 2022-04-20 23:14 | Procedure Note ---
OB Delivery Note - Delivery Date of Delivery: 04/20/22 Surgeon: JIM MENDEZ Estimated blood loss: 100cc - Vaginal Delivery presentation: vertex Delivery position: OA Intrapartum events: precipitous labor- <3hr Delivery induction: none Delivery monitor: external FHT, external uterine Route of delivery: Delivery placenta: spontaneous Delivery cord: 3 umbilical vessels Episiotomy: none Delivery laceration: 1st degree Delivery repair: vicryl (First-degree perineal laceration repaired with 2-0 Vicryl in a running locked fashion.) Anesthesia: local (Lidocaine 1% injected subcutaneously) - Infant A at 1 minute: 8 at 5 minutes: 9 Gender: Female (3170 g)
[2022-04-21] MEDS: IBUPROFEN 800 MG TAB PO SCH ×3 (02:01→18:47)
[2022-04-21 09:01] LABS: Hematocrit 32.5 % (30.3-42.9); Hemoglobin 11.3 gm/dl (10.1-14.3); Mean Corpuscular HGB Conc 35 % (30-34); Mean Corpuscular Volume 94 fl (79-97); Platelet Count 171 K/mm3 (140-440); Red Blood Count 3.47 M/mm3 (3.65-5.03); Red Cell Distribution Width 16.6 % (13.2-15.2)
[2022-04-21] MEDS: DOCUSATE SODIUM 100 MG CAP PO SCH ×2 (10:54→22:08)
--- NOTE | 2022-04-21 13:40 | Progress Note ---
Assessment and Plan A: PP Day #1 Stable P: Follow Routine Orders D/C home today per patient request RTO in 6 Weeks Subjective - Subjective Date of service: 04/21/22 Patient reports: appetite normal, voiding normally, pain well controlled, flat us, bowel movement, ambulating normally [place]: doing well, bottle feeding (and ) Objective - Vital Signs Latest vital signs: Vital Signs Temp Pulse Resp BP BP Pulse Ox Pulse Ox 04/21/22 08:57 97.6 F 64 18 92/45 97 04/21/22 08:51 98 04/21/22 05:29 97.9 F 70 18 110/54 100 04/21/22 02:05 99.0 F 18 99/52 97 04/21/22 02:03 97 04/21/22 02:01 18 04/20/22 23:04 76 96 04/20/22 22:59 85 96 04/20/22 22:57 78 102/49 04/20/22 22:54 71 96 04/20/22 22:49 68 96 04/20/22 22:44 78 96 04/20/22 22:41 69 98/57 04/20/22 22:39 70 96 04/20/22 22:34 82 96 04/20/22 22:29 79 96 04/20/22 22:26 75 115/58 04/20/22 22:24 81 97 04/20/22 22:19 89 96 04/20/22 22:14 96 H 97 04/20/22 22:11 90 118/56 04/20/22 22:09 93 H 98 04/20/22 22:04 88 98 04/20/22 21:59 87 98 04/20/22 21:56 89 129/66 04/20/22 21:54 97 H 96 04/20/22 21:49 93 H 97 04/20/22 21:44 94 H 98 04/20/22 21:39 108 H 97 04/20/22 21:37 67 90 04/20/22 21:34 88 98 04/20/22 21:29 112 H 96 04/20/22 21:24 96 H 98 04/20/22 21:19 103 H 97 04/20/22 21:14 85 97 04/20/22 21:09 101 H 97 04/20/22 21:04 101 H 98 04/20/22 20:59 101 H 97 04/20/22 20:54 90 97 04/20/22 20:49 84 96 04/20/22 20:44 82 97 04/20/22 20:39 78 97 04/20/22 20:34 82 97 04/20/22 20:29 85 98 04/20/22 20:24 101 H 96 04/20/22 20:19 76 97 04/20/22 20:14 86 97 04/20/22 20:09 94 H 96 04/20/22 20:04 101 H 97 04/20/22 19:59 88 97 04/20/22 19:54 99 H 96 04/20/22 19:49 84 97 04/20/22 19:44 83 97 04/20/22 19:39 86 97 04/20/22 19:34 94 H 97 04/20/22 19:29 83 122/71 97 04/20/22 19:24 84 96 04/20/22 19:20 98.5 F 98 04/20/22 19:19 88 97 04/20/22 17:28 114 H 96 04/20/22 17:23 107 H 97 04/20/22 17:18 93 H 98 04/20/22 17:13 80 96 04/20/22 17:08 84 96 04/20/22 17:03 84 95 04/20/22 16:58 77 96 04/20/22 16:53 77 97 04/20/22 16:48 75 95 04/20/22 16:47 78 94 04/20/22 16:43 92 H 97 04/20/22 16:38 87 97 04/20/22 16:33 91 H 96 04/20/22 16:28 87 96 04/20/22 16:23 76 97 04/20/22 16:18 75 97 04/20/22 16:13 76 96 04/20/22 16:08 73 97 04/20/22 16:05 77 94 04/20/22 16:03 80 97 04/20/22 15:58 77 96 04/20/22 15:53 78 96 04/20/22 15:48 82 96 04/20/22 15:43 82 111/59 97 04/20/22 15:07 102 H 96 04/20/22 15:02 87 97 04/20/22 14:57 81 95 04/20/22 14:52 102 H 96 04/20/22 14:47 94 H 96 04/20/22 14:42 118 H 96 04/20/22 14:37 85 97 04/20/22 14:32 89 97 04/20/22 14:27 83 97 04/20/22 14:22 89 96 04/20/22 14:17 85 97 04/20/22 14:12 91 H 97 04/20/22 14:07 86 96 04/20/22 14:02 85 96 04/20/22 13:57 93 H 97 04/20/22 13:52 102 H 96 04/20/22 13:47 95 H 96 04/20/22 13:42 79 96 Intake and Output 04/20/22 04/21/22 04/21/22 22:59 06:59 14:59 Intake Total 120 Balance 120 Intake: Oral 120 Other: Total, Intake Amount 120 Estimated Blood Loss 100 - Exam Breasts: Present: normal Cardiovascular: Present: Regular rate Lungs: Present: Clear to auscultation, Normal air movement Abdomen: Present: normal appearance, soft, normal bowel sounds Uterus: Present: normal, firm, fundal height below umbilicus Extremities: Present: normal - Labs Labs: Abnormal lab results 04/20/22 04/21/22 Range/Units 18:35 08:16 RBC 3.47 L (3.65-5.03) M/mm3 MCH 33 H (28-32) pg MCHC 35 H (30-34) % RDW 16.3 H 16.6 H (13.2-15.2) %
--- NOTE | 2022-04-21 13:41 | Discharge Summary ---
Providers - Providers Date of Admission: 04/20/22 18:42 Date of discharge: 04/21/22 Attending physician: ROSEANNE HOLMAN Primary care physician: ROSEANNE HOLMAN Hospitalization Reason for admission: active labor Delivery: Episiotomy: none Laceration: 1st degree Other procedures: none complications: none Discharge diagnosis: IUP at term delivered baby: female Condition at discharge: Good Disposition: 01 HOME / SELF CARE / HOMELESS Plan - Provider Discharge Summary Activity: routine, no sex for 6 weeks, no heavy lifting 4 weeks, no strenuous exercise Diet: routine Instructions: routine Additional instructions: [] Smoking cessation referral if applicable(refer to patient education folder for contact #) [] Refer to [facility]'s [facility] [address] Booklet Call your doctor immediately for: * Fever > 100.5 * Heavy vaginal bleeding ( >1 pad per hour) * Severe persistent headache * Shortness of breath * Reddened, hot, painful area to leg or breast * Drainage or odor from incision. * Keep incision clean and dry at all times and follow doctor's instructions regarding bathing/showering - Follow up plan Follow up: ROSEANNE HOLMAN MD [Primary Care Provider] - 6 Weeks
[2022-04-21 20:55] VITALS: BP 111/54
== END 2022-04-21 23:30 | disposition home or self-care (01) | DRG 774 ==
LOC: TRG 12:45 → APU 12:46 → LD 17:52 → TRG 18:42 → LD 18:42 → OB 04-21 01:49
PROVIDERS: ADMIT Obstetrics & Gynecology; ATTEND Obstetrics & Gynecology
PROC: 10E0XZZ Delivery of Products of Conception, External Approach (ICD-10-PCS; principal; 2022-04-20)
PROC: 0HQ9XZZ Repair Perineum Skin, External Approach (ICD-10-PCS; 2022-04-20)
DX: O62.3 Precipitate labor (principal); O98.32 Other infections with a predominantly sexual mode of transmission complicating childbirth; Z37.0 Single live birth; Z3A.39 39 weeks gestation of pregnancy; O70.0 First degree perineal laceration during delivery; A60.00 Herpesviral infection of urogenital system, unspecified; Z20.822 Contact with and (suspected) exposure to COVID-19
CPT/HCPCS: 36415; 59025; 76815; 76819; 85014; 85018; 85027; 86592; 86850; 86900; 86901; G0378; J3490; U0003